=== PATIENT | female | born 1985 | race Caucasian/White ===

== ENCOUNTER 2020-05-27 22:38 | Emergency (ER) | payer OTHER, SELFPAY ==
[~2020-05-27] VITALS: Ht 165.1 cm; Wt 57.6 kg
[2020-05-27 22:40] VITALS: Ht 165.1 cm; Wt 57.6 kg
[2020-05-28 00:11] VITALS: BP 124/80
== END 2020-05-28 00:11 | disposition home or self-care (01) ==
LOC: ED 22:38
DX: U07.1 COVID-19 (principal); B34.9 Viral infection, unspecified; Z88.5 Allergy status to narcotic agent
CPT/HCPCS: U0003